=== PATIENT | female | born 1940 | race Caucasian/White ===

== ENCOUNTER → 2016-04-10 | Outpatient (CLI) | payer MEDICARE, MEDICAID ==
[~2016-04-10] MED LIST: ASPI325T32 PO; ATOR40TA68 PO; BENA40TA41 PO; GLIP5TAB13 PO; HYDR-3498 PO; HYG25 PO; METF-388 PO; ULT50 PO
--- NOTE | 2016-04-10 11:32 | RADRPT ---
PROCEDURE: Left knee radiographs. CLINICAL INDICATION: Left knee pain. Postop. TECHNIQUE: Three views. Weight bearing. Frontal, lateral, and patellar view. COMPARISON: 01/09/2016. FINDINGS: There is no fracture or dislocation. The soft tissues are normal. There is a total left knee arthroplasty which appears satisfactory. There is no lytic or blastic lesion. There is no joint effusion. IMPRESSION: 1. Satisfactory postoperative appearance of the left knee. RPTAT: QQ .Dru Correia MD, Date Time Electronically viewed and signed by .Dru Correia MD, on 04/10/2016 11:32 .R/
== END | disposition home or self-care (01) ==
LOC: HKI 10:39
PROVIDERS: ATTEND Orthopaedic Surgery
DX: Z47.1 Aftercare following joint replacement surgery (principal); Z96.653 Presence of artificial knee joint, bilateral
CPT/HCPCS: 73562; G0463

== ENCOUNTER → 2016-07-10 | Outpatient (CLI) | payer MEDICARE, MEDICAID ==
[~2016-07-10] MED LIST changes: -METF-388 PO; +METF1000 PO; +TRAM50TA2 PO; -ULT50 PO
== END | disposition home or self-care (01) ==
LOC: HKI 08:51
PROVIDERS: ATTEND Orthopaedic Surgery
DX: Z47.1 Aftercare following joint replacement surgery (principal); Z96.653 Presence of artificial knee joint, bilateral
CPT/HCPCS: G0463

== ENCOUNTER 2017-06-14 21:29 | Emergency (ER) | END 2017-06-15 08:05 | disposition home or self-care (01) ==

== ENCOUNTER 2018-08-01 11:49 | Emergency (ER) | payer MEDICARE, OTHER ==
[~2018-08-01] VITALS: Ht 154.9 cm; Wt 55.6 kg
[~2018-08-01 11:49] MED LIST changes: -BENA40TA41 PO; +BENA40TA56 PO; -HYDR-3498 PO; +HYDR-3601 PO; +MECL12.574 PO; -METF1000 PO; +METF100010 PO
[2018-08-01 11:57] VITALS: Ht 154.9 cm; Wt 55.6 kg
[2018-08-01] MEDS ORDERED: ONDANSETRON 4 MG INJ IV STA (16:31)
[2018-08-01] MEDS ORDERED: morphine 4 MG/ML VIAL IV STA (16:31)
[2018-08-01] MEDS ORDERED: SOD CHLORIDE 0.9% 1,000 ML IV STA (16:31)
[2018-08-01] MEDS ORDERED: LACTATED RINGER'S 1,000 ML IV STA (16:33)
[2018-08-01] MEDS ORDERED: CHLO25TA2 PO (17:16)
[2018-08-01] MEDS ORDERED: METF100010 PO (17:16)
[2018-08-01] MEDS ORDERED: BENA40TA56 PO (17:16)
[2018-08-01] MEDS ORDERED: SITA100T11 PO (17:17)
[2018-08-01] MEDS ORDERED: MELO15TA30 PO (17:17)
[2018-08-01] MEDS ORDERED: CYAN-23 PO (17:45)
[2018-08-01 18:03] VITALS: BP 135/48; PULSE 66; RESP 17
[2018-08-01] MEDS ORDERED: ONDA4TAB14 PO (18:31)
--- NOTE | 2018-08-01 18:40 | ERD ---
ER Documentation Chief Complaint Chief Complaint abdominal pain & diarrhea x2 days, BS 168 HPI Patient is a 77-year-old female with hypertension and diabetes who presents with diarrhea. She has had diarrhea which started on Wednesday. She saw Dr. Mejia who sent her to the emergency department for evaluation. She has mild abdominal pain diffusely. She has no fevers and no vomiting but she feels nausea. Upon review of old medical record she has multiple visits for various complaints. ROS All systems reviewed and are negative except as per history of present illness. Medications Home Meds Active Scripts Ondansetron (Ondansetron Odt) 4 Mg Tab.rapdis, 4 MG PO Q6H PRN for NAUSEA AND/OR VOMITING, #10 TAB Prov:YURY ROLLINS MD 08/01/18 Reported Medications Cyanocobalamin (Vitamin B-12) (Vitamin B-12) 1,000 Mcg Capsule, 1000 MCG PO DAILY, CAP 08/01/18 Meloxicam* (Mobic*) 15 Mg Tablet, 15 MG PO DAILY, #30 TAB 08/01/18 Sitagliptin* (Januvia*) 100 Mg Tablet, 100 MG PO DAILY, #30 TAB 08/01/18 Metformin Hcl* (Metformin Hcl*) 1,000 Mg Tablet, 1000 MG PO WITH BREAKFAST DINNE, #60 TAB 08/01/18 Benazepril Hcl* (Benazepril Hcl*) 40 Mg Tablet, 40 MG PO DAILY, #30 TAB 08/01/18 Chlorthalidone* (Chlorthalidone*) 25 Mg Tablet, 25 MG PO DAILY, TAB 08/01/18 Discontinued Reported Medications Benazepril Hcl* (Benazepril Hcl*) 40 Mg Tablet, 40 MG PO DAILY 02/16/12 Metformin Hcl* (Metformin Hcl*) 1,000 Mg Tablet, 1000 MG PO BID 02/16/12 Discontinued Scripts Meclizine Hcl* (Antivert*) 12.5 Mg Tab, 12.5 MG PO Q6H PRN for DIZZINESS, #20 TAB Prov:YURY ROLLINS MD 06/15/17 Tramadol HCl (Tramadol HCl) 50 Mg Tablet, 50 MG PO Q6 for 14 Days, #60 TAB Prov:DORIS BURGOS 01/09/16 Hydrocodone Bit-Acetaminophen (Hydrocodone Bit-APAP) 5-325MG Tablet, 1 TAB PO Q4H PRN for PAIN LEVEL 1-3 for 14 Days, #60 TAB Prov:DORIS BURGOS 01/09/16 Glipizide* (Glipizide*) 5 Mg Tablet, 2.5 MG PO AC BREAKFAST for 30 Days, #30 TAB Prov:DORIS BURGOS 01/09/16 Chlorthalidone* (Hygroton*) 25 Mg Tab, 25 MG PO DAILY for 30 Days, #30 TAB Prov:DORIS BURGOS 01/09/16 Aspirin (Aspir-Francy) 325 Mg Tablet.dr, 325 MG PO BID for 42 Days, #84 Prov:DORIS BURGOS 01/09/16 Atorvastatin* (Atorvastatin*) 40 Mg Tablet, 40 MG PO HS for 30 Days, #30 TAB Prov:DORIS BURGOS 01/09/16 Allergies Allergies: Coded Allergies: No Known Allergies (Verified Allergy, Unknown, 08/01/18) PMhx/Soc History of Surgery: Yes (C-sectionx1, s/p inguinal hernia, s/p R TKA) Anesthesia Reaction: No Hx Neurological Disorder: No Hx Respiratory Disorders: No Hx Cardiac Disorders: Yes (HTN, diastolic function disorder, RBBB) Hx Psychiatric Problems: No Hx Miscellaneous Medical Probl: Yes (DM2, OA/DJD, osteoporosis, high cholesterol) Hx Alcohol Use: No Hx Substance Use: No Hx Tobacco Use: No Smoking Status: Never smoker FmHx Family History: diabetes Physical Exam Vitals Vital Signs Date Temp Pulse Resp B/P (MAP) Pulse Ox O2 O2 Flow FiO2 Time Delivery Rate 08/01/18 98.4 66 17 135/48 96 Room Air 18:03 (77) 08/01/18 98.4 74 20 142/47 95 Room Air 17:03 (78) 08/01/18 98.4 90 18 136/62 97 Room Air 16:40 (86) 08/01/18 98.4 78 18 136/62 97 11:57 (86) Physical Exam Const: No acute distress Head: Atraumatic Eyes: Normal Conjunctiva ENT: Normal External Ears, Nose and Mouth. Neck: Full range of motion. No meningismus. Resp: Clear to auscultation bilaterally Cardio: Regular rate and rhythm, no murmurs Abd: Soft, diffuse tenderness to palpation without rebound or guarding Skin: No petechiae or rashes Back: No midline or flank tenderness Ext: No cyanosis, or edema Neur: Awake and alert Psych: Normal Mood and Affect Result Diagram: 08/01/18 1655 08/01/18 1655 Results 24 hrs Laboratory Tests Test 08/01/18 12:00 08/01/18 16:55 Bedside Glucose 168 mg/dL White Blood Count 15.6 10^3/ul Red Blood Count 4.26 10^6/ul Hemoglobin 13.2 g/dl Hematocrit 40.2 % Mean Corpuscular Volume 94.4 fl Mean Corpuscular Hemoglobin 31.0 pg Mean Corpuscular Hemoglobin Concent 32.8 g/dl Red Cell Distribution Width 12.2 % Platelet Count 438 10^3/UL Mean Platelet Volume 9.7 fl Immature Granulocytes % 0.600 % Neutrophils % 78.2 % Lymphocytes % 11.3 % Monocytes % 8.3 % Eosinophils % 1.3 % Basophils % 0.3 % Nucleated Red Blood Cells % 0.0 /100WBC Immature Granulocytes # 0.090 10^3/ul Neutrophils # 12.2 10^3/ul Lymphocytes # 1.8 10^3/ul Monocytes # 1.3 10^3/ul Eosinophils # 0.2 10^3/ul Basophils # 0.0 10^3/ul Nucleated Red Blood Cells # 0.0 10^3/ul Sodium Level 142 mmol/L Potassium Level 4.6 mmol/L Chloride Level 111 mmol/L Carbon Dioxide Level 18 mmol/L Anion Gap 13 Blood Urea Nitrogen 38 mg/dl Creatinine 1.44 mg/dl Est Glomerular Filtrat Rate mL/min mL/min Glucose Level 141 mg/dl Calcium Level 10.7 mg/dl Total Bilirubin 0.6 mg/dl Direct Bilirubin 0.00 mg/dl Indirect Bilirubin 0.6 mg/dl Aspartate Amino Transf (AST/SGOT) 14 IU/L Alanine Aminotransferase (ALT/SGPT) 14 IU/L Alkaline Phosphatase 97 IU/L Total Protein 8.4 g/dl Albumin 4.7 g/dl Globulin 3.70 g/dl Albumin/Globulin Ratio 1.27 Lipase 243 U/L Current Medications Medications Dose Sig/Silviano Start Time Status Last (Trade) Ordered Route PRN Stop Time Admin Dose Reason Admin Sodium 1,000 ml @ Q1H STAT 08/01/18 DC 08/01/18 Chloride 1,000 mls/hr IV 16:31 16:53 08/01/18 17:30 Morphine 4 mg ONCE STAT 08/01/18 DC 08/01/18 Sulfate IV 16:31 16:53 (morphine) 08/01/18 16:32 Ondansetron 4 mg ONCE STAT 08/01/18 DC 08/01/18 HCl (Zofran IV 16:31 16:53 Inj) 08/01/18 16:32 Lactated 1,000 ml @ Q1H STAT 08/01/18 DC 08/01/18 Ringer's 1,000 mls/hr IV 16:33 16:53 08/01/18 17:32 Procedures/MDM CT abdomen pelvis read by radiology shows no surgical process. Patient is a 77-year-old female with hypertension and diabetes who presents with diarrhea and mild abdominal pain. Laboratory studies were done. LFTs and lipase are basically normal. CT scan of the abdomen pelvis shows no surgical process. At this point I doubt appendicitis, cholecystitis, pancreatitis, or bowel obstruction. Patient was given 1 L of normal saline 1 L of lactated Ringer's. She was also given morphine and Zofran for symptom medic relief. She can return for any worsening symptoms. Departure Diagnosis: Primary Impression: Abdominal pain Abdominal location: generalized Qualified Codes: R10.84 - Generalized abdominal pain Additional Impression: Diarrhea Diarrhea type: unspecified type Qualified Codes: R19.7 - Diarrhea, unspecified Condition: Fair Patient Instructions: Abdominal Pain, Treating Diarrhea Additional Instructions: Llame al doctor MAANA y jimmy kajal FREDDY PARA DENTRO DE 1-2 PALACIO.Dgale a la secretaria que nosotros le instruimos hacer esta freddy.Avise o llame si silva condicin se empeora antes de la freddy. Regresa aqui si peor o no mejor. YURY ROLLINS MD Aug 01, 2018 18:40
== END 2018-08-01 18:45 | disposition home or self-care (01) ==
LOC: E/R 11:49
DX: R10.84 Generalized abdominal pain (principal); R19.7 Diarrhea, unspecified; E11.9 Type 2 diabetes mellitus without complications; I10 Essential (primary) hypertension; Z79.84 Long term (current) use of oral hypoglycemic drugs
CPT/HCPCS: 36415; 74176; 80053; 82962; 83690; 85025; 96374; 96375; 99285; J2270; J2405; J7030; J7120